=== PATIENT | female | born 1990 | race Caucasian/White ===

== ENCOUNTER 2017-02-11 17:42 | Emergency (ER) | payer BC, OTHER ==
[~2017-02-11] VITALS: Ht 162.6 cm; Wt 67.1 kg
--- NOTE | ~2017-02-11 | EKG ---
[address] [address] ELECTROCARDIOGRAM REPORT Name: XAVIER TOMLIN Room [facility]: [facility] [id number] Admission: 02/11/17 Attend Phys: Discharge: 02/11/17 Date of : [birth year] Report #: [id number] THIS REPORT FOR: //name// 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
[2017-02-11 19:02] LABS: HEMATOCRIT 40.8 % (37.0-47.0); HEMOGLOBIN 14.1 gm/dL (12.0-15.0); MCH 30.7 pg (26.0-34.0); MCHC 34.6 g/dL (28.0-37.0); MCV 88.6 fL (80.0-100.0); RBC 4.6 mil/uL (4.20-5.00); RDW 11.9 % (10.5-14.5); WBC 8.8 thou/uL (4.0-11.0)
[2017-02-11 19:09] LABS: URINE BILIRUBIN NEGATIVE (Negative); URINE BLOOD 1+ (Negative); URINE COLOR YELLOW; URINE GLUCOSE-RANDOM* NEGATIVE (Negative); URINE KETONES 1+ (Negative); URINE NITRITE NEGATIVE (Negative); URINE PROTEIN (DIPSTICK) NEGATIVE (Negative); URINE SPECIFIC GRAVITY >= 1.030 (1.003-1.035); URINE UROBILINOGEN 0.2 E.U./dl (0.2-1.0)
[2017-02-11 19:16] LABS: CASTS None Seen /LPF (None Seen); SQUAMOUS 0-3 Few /LPF (0-3)
[2017-02-11 19:17] LABS: BACTERIA 1-9 Few /HPF (None Seen); CRYSTALS None Seen /LPF (None Seen); URINE RBC 0-2 Rare /HPF (0-2); URINE WBC None Seen /HPF (0-5)
[2017-02-11 19:18] LABS: CALCIUM 9.6 mg/dL (8.5-10.1); CREATININE 0.7 mg/dL (0.6-1.0); POTASSIUM 4.2 mmol/L (3.5-5.1)
[2017-02-11] MEDS ORDERED: BCP (19:49)
[2017-02-11] MEDS ORDERED: ZYRTEC10 M5 PO (19:49)
[2017-02-11] MEDS ORDERED: HYDROCHLOROTH12.5 M1 PO (19:52)
[2017-02-11 20:49] VITALS: BP 138/96
== END 2017-02-11 20:49 | disposition home or self-care (01) ==
LOC: ER 17:42
PROVIDERS: Physician Assistant
DX: R03.0 Elevated blood-pressure reading, without diagnosis of hypertension (principal); F10.99 Alcohol use, unspecified with unspecified alcohol-induced disorder

== ENCOUNTER → 2017-02-24 | Outpatient (CLI) | payer BC, OTHER ==
[~2017-02-24] MED LIST: BCP; HYDROCHLOROTH12.5 M1 PO; ZYRTEC10 M5 PO
== END ==
LOC: ULTRA 06:48
DX: I10 Essential (primary) hypertension (principal)